=== PATIENT | male | born 2000 | race American Indian/Alaskan Native ===

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

== ENCOUNTER 2020-03-28 13:16 | Emergency (ER) | payer BC ==
[2020-03-28] MEDS ORDERED: Lidocaine 1% with EPINEPHrine 1:100,000 10 ML MDV INJECT ONE (13:42)
[2020-03-28] MEDS ORDERED: Lidocaine 1% with EPINEPHrine 1:100,000 20 ML MDV ONE (13:45)
[2020-03-28] MEDS ORDERED: Lidocaine 1% with EPINEPHrine 1:100,000 20 ML MDV INJECT ONE (13:49)
--- NOTE | 2020-03-28 15:08 | EDM.PDOC ---
ED HPI GENERAL MEDICAL PROBLEM - General Chief Complaint: Laceration Stated Complaint: MEDICAL CLEARANCE Time Seen by Provider: 03/28/20 13:28 - History of Present Illness INITIAL COMMENTS - FREE TEXT/NARRATIVE: CHIEF COMPLAINT(S): Arm laceration HISTORY OF PRESENT ILLNESS: This is a 19-year-old male without any significant past medical history who comes to the emergency department with a chief complaint of arm laceration. The patient states that he was cleaning dishes and he was cleaning a knife and it slipped causing him to cut his left arm. He states that there was a significant amount of bleeding. He decided to come to the emergency department. He denies any numbness, tingling, or weakness. Given the location of the laceration I did asked the patient about any suicidal ideation, homicidal ideation or suicide attempt. He denied any. He denies any prior history. He states that his tetanus is up-to-date. He denies any other injuries REVIEW OF SYSTEMS: Constitutional: Denies fever, chills. Eyes: Denies eye pain Ears, Nose, Mouth, & Throat: Denies earache Cardiovascular: Denies chest pain Respiratory: Denies shortness of breath Gastrointestinal: Denies Nausea, vomiting, diarrhea, hematochezia. Genitourinary: Denies hematuria MSK: Positive for left arm laceration. Denies any decreased range of motion or exposed bone. Neurological: Denies blurred vision numbness, tingling, weakness Psychiatric: Positive for anxiety. Denies depression PAST MEDICAL HISTORY: As per history of present illness and as reviewed below otherwise noncontributory. SURGICAL HISTORY: As per history of present illness and as reviewed below otherwise noncontributory. SOCIAL HISTORY: As per history of present illness and as reviewed below otherwise noncontributory. FAMILY HISTORY: As per history of present illness and as reviewed below otherwise noncontributory. EXAMINATION OF ORGAN SYSTEMS/BODY AREAS: Constitutional: Blood pressure is 147/106, heart rate 115, respiratory rate 20 with an oxygen saturation of 10 percent on room air. Temperature 37.3 General: Overall well-appearing young man who is in no acute distress Psychiatric: Appropriate mood and affect. Eyes: No scleral icterus or conjunctival erythema ENMT: Moist mucous membranes. No pharyngeal erythema Cardiovascular: Regular, rate, and rhythm. No gallops, murmurs, or rubs. Bilateral upper extremity pulses symmetric and intact. No JVD. Respiratory: Lungs clear to auscultation bilaterally. No wheezes, rales, or rhonchi. Musculoskeletal: The patient has full dexterity of all his fingers of the left hand. Good flexion and extension of the elbow. Skin: There is an 8 cm laceration without any tendon exposed with some muscle exposed. There is some mild oozing of blood. Neurological: Alert, GCS 15 distal sensation is intact. MEDICAL DECISION MAKING AND COURSE IN THE ED WITH INTERPRETATION/REVIEW OF DIAGNOSTIC STUDIES: This is a 19-year-old male without any significant past medical history who comes to the emergency department with a centimeter left arm laceration with mild blood oozing. At this time I do not believe any imaging is indicated. We will completely wash the wound out and prepare for suture repair. The patient's tetanus is up-to-date therefore no tetanus is needed. Laceration Repair Note Repair of the 8 cm left arm wound was done by myself. Wound was irrigated well with saline. Local anesthesia with lidocaine with epinephrine was performed. No foreign bodies were noted. There was a small bleed therefore I did place a [id number] stitch with chromic gut suture which did control the bleeding. The wound was repaired with 15 4-0 directed nylon sutures. Wound edges approximated well. Bacitracin ointment and a sterile dressing were applied. After suture repair I did discuss with patient that he need to return to the emergency department if you have any pus drainage or surrounding redness. I discussed the need to remove the stitches in 7 days. He was amenable to discharge at this time and had no further questions. DISPOSITION: The patient was discharged home in stable condition. The patient will follow up with emergency department or primary care physician for stitch removal CONDITION: Fair PROCEDURES: Suture repair FINAL IMPRESSION(S)/DIAGNOSES: 1. Acute left arm laceration status post suture repair Tim Caballero M.D. left forearm Pain Score (Numeric/FACES): 8 - Related Data Allergies Allergy/AdvReac Type Severity Reaction Status Date / Time No Known Allergies Allergy Verified 03/28/20 13:49 Home Meds: Home Meds . [No Known Home Meds] 09/24/19 [History] Past Medical History - Past Health History Medical/Surgical History: Denies Medical/Surgical History HEENT History: Reports: Other (See Below) Other HEENT History: wears glasses/contacts Respiratory History: Reports: Asthma Gastrointestinal History: Reports: Cholelithiasis, GERD - Infectious Disease History Infectious Disease History: Reports: None - Past Surgical History Head Surgeries/Procedures: Reports: None HEENT Surgical History: Reports: Tonsillectomy Social & Family History - Family History Family Medical History: No Pertinent Family History - Caffeine Use Caffeine Use: Reports: None - Recreational Drug Use Recreational Drug Use: No ED ROS GENERAL - Review of Systems Review Of Systems: See Below ED EXAM, SKIN/RASH Exam: See Below Course - Vital Signs Last Recorded V/S: Last Vital Signs Temp 37.3 C 03/28/20 13:38 Pulse 115 H 03/28/20 13:38 Resp 20 03/28/20 13:38 BP 147/106 H 03/28/20 13:38 Pulse Ox - Orders/Labs/Meds Meds: Medications Discontinued Medications Generic Name Dose Route Start Last Admin Trade Name Freq PRN Reason Stop Dose Admin Lidocaine/Epinephrine 10 ml 03/28/20 13:42 Xylocaine 1% With Epinephrine 1:100,000 INJECT 03/28/20 13:43 ONETIME ONE Lidocaine/Epinephrine Confirm 03/28/20 13:45 03/28/20 14:06 Xylocaine 1% With Epinephrine 1:100,000 Administered 03/28/20 13:46 Not Given Dose 20 ml .ROUTE .STK-MED ONE Lidocaine/Epinephrine 20 ml 03/28/20 13:49 03/28/20 13:55 Xylocaine 1% With Epinephrine 1:100,000 INJECT 03/28/20 13:50 20 ml ONETIME ONE Administration Departure - Departure Time of Disposition: 15:06 Disposition: Home, Self-Care 01 Condition: Fair Clinical Impression: Arm laceration Qualifiers: Encounter type: initial encounter Laterality: left Qualified Code(s): S41.112A - Laceration without foreign body of left upper arm, initial encounter - Discharge Information *PRESCRIPTION DRUG MONITORING PROGRAM REVIEWED*: No *COPY OF PRESCRIPTION DRUG MONITORING REPORT IN PATIENT MADAY: No Instructions: Laceration Care, Adult, [id number], Sutures, Radha, or Adhesive Wound Closure, [id number] Referrals: PCP,None [Primary Care Provider] - Forms: ED Department Discharge Additional Instructions: Your evaluated today on an emergent basis. We did place 15 stitches in your arm cut. You will need to return to the emergency department in 7 days for removal of the stitches. Please return to the emergency department if you develop any surrounding redness or drainage of pus. You may also follow-up with your primary care doctor if you choose. [facility] - Primary Care [address] [place] [address] [facility] [address] [place] [id number] The patient is informed of any results of their evaluation and diagnostic workup and all questions are answered. They are given discharge instructions and return precautions. The patient is stable for discharge. The patient states they understand and agree with the plan and that they will return if their symptoms get worse or if they have any new concerns. The following information is given to patients seen in the emergency department who are being discharged to home. This information is to outline your options for follow-up care. We provide all patients seen in our emergency department with a follow-up referral. The need for follow-up, as well as the timing and circumstances, are variable depending upon the specifics of your emergency department visit. If you don't have a primary care physician on staff, we will provide you with a referral. We always advise you to contact your personal physician following an emergency department visit to inform them of the circumstance of the visit and for follow-up with them and/or the need for any referrals to a consulting specialist. The emergency department will also refer you to a specialist when appropriate. This referral assures that you have the opportunity for follow-up care with a specialist. All of these measure are taken in an effort to provide you with optimal care, which includes your follow-up. Under all circumstances we always encourage you to contact your private physician who remains a resource for coordinating your care. When calling for follow-up care, please make the office aware that this follow-up is from your recent emergency room visit. If for any reason you are refused follow-up, please contact the [facility] Emergency Department at and asked to speak to the emergency department charge nurse. Sepsis Event Note (ED) - Evaluation Sepsis Screening Result: No Definite Risk - Focused Exam Vital Signs: Vital Signs Temp Pulse Resp BP 03/28/20 13:38 37.3 C 115 H 20 147/106 H
== END 2020-03-28 15:28 | disposition home or self-care (01) ==
LOC: MW.ED 13:16
DX: S51.812A Laceration without foreign body of left forearm, initial encounter (principal); J45.909 Unspecified asthma, uncomplicated; W26.0XXA Contact with knife, initial encounter
CPT/HCPCS: 12004; 12034; 99282-25; 99283

== ENCOUNTER 2020-04-06 01:40 | Emergency (ER) | payer BC | END 2020-04-06 01:50 | disposition left against medical advice (07) | LOC: MW.ED 01:40 | DX: S51.812D Laceration without foreign body of left forearm, subsequent encounter (principal); X58.XXXD Exposure to other specified factors, subsequent encounter | CPT/HCPCS: 99281 ==

== ENCOUNTER 2020-06-21 11:48 | Emergency (ER) | payer BC ==
--- NOTE | 2020-06-21 11:56 | PCM.EKG ---
#1 Interpretation EKG Date: 06/21/20 Time: 11:55 EKG Interpretation Comments: Sinus tachycardia rate of 109 normal axis and intervals otherwise normal EKG, no sign of acute ischemia or prior MA
[2020-06-21] MEDS ORDERED: Sodium Chloride 0.9% 1,000 ML IV ONE (11:59)
[2020-06-21] MEDS ORDERED: LORazepam 2 MG/ML SDV IVPUSH ONE (11:59)
--- NOTE | 2020-06-21 12:03 | EDM.PDOC ---
ED HPI GENERAL MEDICAL PROBLEM - General Chief Complaint: Chest Pain Stated Complaint: CHEST PAIN Time Seen by Provider: 06/21/20 11:49 Source of Information: Reports: Patient History Limitations: Reports: No Limitations - History of Present Illness INITIAL COMMENTS - FREE TEXT/NARRATIVE: HISTORY AND PHYSICAL: History of present illness: Patient is a 19-year-old male who presents to the emergency room with complaints of feeling anxious and having intermittent chest pain over the past few weeks. While the patient is talking he is tearful stating that he is going through a l ot of stress at home, his personal life and at work. His grandmother recently . He does feel that anxiety plays a role in this chest pain as he starts to feel anxious, the more he thinks about it he starts to have midsternal chest pain, tingling sensation to bilateral upper extremities, labored breathing and difficulty sitting still. He states this can last anywhere from a few seconds to several minutes. Patient denies any fever, chills, headache, change in vision, syncope or near syncope. Denies any shortness of breath or cough. Denies any abdominal pain, nausea, vomiting, diarrhea, constipation or dysuria. Has not noted any blood in urine or stool. Patient has been eating and drinking appropriately. He denies any alcohol or drug abuse. No recent travel or exposure to anyone who has been ill. Review of systems: As per history of present illness and below otherwise all systems reviewed and negative. Past medical history: As per history of present illness and as reviewed below otherwise noncontributory. Surgical history: As per history of present illness and as reviewed below otherwise noncontributory. Social history: See social history for further information Family history: As per history of present illness and as reviewed below otherwise noncontributory. Physical exam: General: Well developed and well nourished 19-year-old male. Alert and orientated x 3. Nontoxic in appearance, tearful and moderately anxious. Vital signs have been reviewed by me. Nursing notes were reviewed. HEENT: Atraumatic, normocephalic, pupils equal and reactive bilaterally, neg ative for conjunctival pallor or scleral icterus, mucous membranes moist, trachea midline. No drooling or trismus noted. No meningeal signs. No hot potato voice noted. Lungs: Clear to auscultation bilaterally. No wheezes, rales, or rhonchi. Chest nontender. Normal work of breathing, no accessory muscles used. Heart: S1S2, regular rate and rhythm without overt murmur, gallops, or rubs. No JVD. No peripheral edema Abdomen: Soft, nondistended, nontender. Normoactive bowel sounds. Negative for masses or costovertebral tenderness. Skin: Intact, warm, dry. No lesions or rashes noted. Hematologic: No petechiae or purpra. Mucosa appropriate color and normal nail bed color and refill. Extremities: Atraumatic, moves all extremities per self without difficulty or deficits, negative for cords or calf pain. Neurovascular unremarkable. Neuro: Awake, alert, oriented. Cranial nerves II through XII unremarkable. Cerebellum unremarkable. Motor and sensory unremarkable throughout. Exam nonfocal. Psychiatric: Mood and affect are appropriate. Normal thought process. Answering questions appropriately. Notes: *This patient was seen and evaluated during the 2019 SARS-CoV-2 novel coronavirus pandemic period. Community viral transmission is ongoing at time of this encounter and the emergency department is operating under pandemic response procedures. 09/2019 He was seen in the ED for panic attack and increased anxiety. Patient reports he has been struggling with this for "awhile now" and "I used to be so happy...I don't know what's going on with me". He denies having any thoughts of self harm or harming others. He states the anxiety is just getting worse, and now with the passing of his grandmother he feels its been more frequent over the past two weeks. He is agreeable to lab work and I will give him a dose of Ativan while here. My suspicion for heart related issues is very low, but will do a cardiac work up. Lab work, EKG, chest x-ray are unremarkable. Patient states he feels improved after the Ativan and does appear much calmer. VSS. I have talked with the patient about today's findings, in addition to providing specific details for plan of care. Reassessment at the time of disposition demonstrates that the patient is in no acute distress. The patient is stable for discharge, counseling was provided and we discussed in great detail signs and symptoms that would prompt them to return to the Emergency Department. Medication, follow up and supportive care measures were reviewed and discussed. Voices understanding and is agreeable to plan of care. Denies any further questions or concerns at this time. Diagnostics: CBC, CMP, TSH, EKG, CXR Therapeutics: IV fluids, Ativan Prescription: Ativan (#10) Impression: Chest pain Anxiety Plan: 1. You were evaluated today on an emergent basis. Your lab work is within normal limits. Please try to reduce your stressors at home. Consider seeing a counselor as we discussed. You can use the Ativan as needed as directed. 2. You can alternate Tylenol and ibuprofen as needed for pain management. 3. We encourage you to follow up with your primary care provider and/or recommended specialist in the next few days for re-evaluation and further care/management. 4. If your symptoms should worsen, new symptoms develop or any of the signs and symptoms we discussed should arise please return to the emergency room or call 911 (if needed). Definitive disposition and diagnosis as appropriate pending reevaluation and review of above. Chest Pain Score (Numeric/FACES): 7 - Related Data Allergies Allergy/AdvReac Type Severity Reaction Status Date / Time No Known Allergies Allergy Verified 06/21/20 12:53 Home Meds: Home Meds LORazepam [Ativan] 1 mg PO BID PRN #10 tab 06/21/20 [Rx] Past Medical History - Past Health History Medical/Surgical History: Denies Medical/Surgical History HEENT History: Reports: Other (See Below) Other HEENT History: wears glasses/contacts Respiratory History: Reports: Asthma Gastrointestinal History: Reports: Cholelithiasis, GERD - Infectious Disease History Infectious Disease History: Reports: None - Past Surgical History Head Surgeries/Procedures: Reports: None HEENT Surgical History: Reports: Tonsillectomy Social & Family History - Family History Family Medical History: No Pertinent Family History - Caffeine Use Caffeine Use: Reports: None ED ROS GENERAL - Review of Systems Review Of Systems: Comprehensive ROS is negative, except as noted in HPI. ED EXAM, GENERAL - Physical Exam Exam: See Below (See dictation) Course - Vital Signs Last Recorded V/S: Last Vital Signs Temp 97.1 F 06/21/20 12:54 Pulse 109 H 06/21/20 12:54 Resp 20 06/21/20 12:54 BP 161/111 H 06/21/20 12:54 Pulse Ox - Orders/Labs/Meds Orders: Active Orders 24 hr Category Date Time Status EKG Documentation Completion [RC] STAT Care 06/21/20 11:59 Active Labs: Laboratory Tests 06/21/20 06/21/20 06/21/20 Range/Units 12:05 12:05 12:05 WBC 12.30 H (4.0-11.0) K/uL RBC 5.76 (4.50-5.90) M/uL Hgb 18.2 H (13.0-17.0) g/dL Hct 50.8 H (38.0-50.0) % MCV 88.2 (80.0-98.0) fL MCH 31.6 (27.0-32.0) pg MCHC 35.8 (31.0-37.0) g/dL RDW Std Deviation 39.1 (28.0-62.0) fl RDW Coeff of Yancy 12 (11.0-15.0) % Plt Count 306 (150-400) K/uL MPV 9.90 (7.40-12.00) fL Neut % (Auto) 76.8 (48.0-80.0) % Lymph % (Auto) 14.4 L (16.0-40.0) % Aiken % (Auto) 7.8 (0.0-15.0) % Eos % (Auto) 0.8 (0.0-7.0) % Baso % (Auto) 0.2 (0.0-1.5) % Neut # (Auto) 9.5 H (1.4-5.7) K/uL Lymph # (Auto) 1.8 (0.6-2.4) K/uL Aiken # (Auto) 1.0 H (0.0-0.8) K/uL Eos # (Auto) 0.1 (0.0-0.7) K/uL Baso # (Auto) 0.0 (0.0-0.1) K/uL Nucleated RBC % 0.0 /100WBC Nucleated RBCs # 0 K/uL Sodium 142 (136-148) mmol/L Potassium 3.6 (3.5-5.1) mmol/L Chloride 107 (98-107) mmol/L Carbon Dioxide 23.4 (21.0-32.0) mmol/L BUN 13 (7.0-18.0) mg/dL Creatinine 1.1 (0.8-1.3) mg/dL Est Cr Clr Drug Dosing TNP Estimated GFR (MDRD) > 60.0 ml/min Glucose 108 H (74-106) mg/dL Calcium 9.0 (8.5-10.1) mg/dL Total Bilirubin 0.6 (0.2-1.0) mg/dL AST 26 (15-37) IU/L ALT 99 H (14-63) IU/L Alkaline Phosphatase 141 H (46-116) U/L Troponin I < 0.050 (0.000-0.056) ng/mL Total Protein 7.7 (6.4-8.2) g/dL Albumin 3.7 (3.4-5.0) g/dL Globulin 4.0 (2.6-4.0) g/dL Albumin/Globulin Ratio 0.9 (0.9-1.6) TSH 3rd Generation 3.41 (0.52-4.13) uIU/mL Meds: Medications Discontinued Medications Generic Name Dose Route Start Last Admin Trade Name Freq PRN Reason Stop Dose Admin Sodium Chloride 1,000 mls @ 999 mls/hr 06/21/20 11:59 06/21/20 12:38 Normal Saline IV 06/21/20 12:59 999 mls/hr STAT ONE Administration Lorazepam 1 mg 06/21/20 11:59 06/21/20 12:38 Lorazepam 2 Mg/Ml Sdv IVPUSH 06/21/20 12:00 1 mg ONETIME ONE Administration Departure - Departure Time of Disposition: 12:57 Disposition: Home, Self-Care 01 Clinical Impression: Nonspecific chest pain, Anxiety Prescriptions: LORazepam [Ativan] 1 mg PO BID PRN #10 tab PRN Reason: Anxiety Instructions: Managing Anxiety, Adult Forms: ED Department Discharge Additional Instructions: The following information is given to patients seen in the emergency department who are being discharged to home. This information is to outline your options for follow-up care. We provide all patients seen in our emergency department with a follow-up referral. The need for follow-up, as well as the timing and circumstances, are variable depending upon the specifics of your emergency department visit. If you don't have a primary care physician on staff, we will provide you with a referral. We always advise you to contact your personal physician following an emergency department visit to inform them of the circumstance of the visit and for follow-up with them and/or the need for any referrals to a consulting specialist. The emergency department will also refer you to a specialist when appropriate. This referral assures that you have the opportunity for follow-up care with a specialist. All of these measure are taken in an effort to provide you with optimal care, which includes your follow-up. Under all circumstances we always encourage you to contact your private physician who remains a resource for coordinating your care. When calling for follow-up care, please make the office aware that this follow-up is from your recent emergency room visit. If for any reason you are refused follow-up, please contact the [facility] Emergency Department at and asked to speak to the emergency department charge nurse. [facility] [address] [place] [address] [place] [address] Thank you for choosing the [facility] emergency department in [place] for your medical needs today. It was a pleasure caring for you. Today you were seen in the emergency department for chest pain and anxiety. 1. You were evaluated today on an emergent basis. Your lab work is within normal limits. Please try to reduce your stressors at home. Consider seeing a counselor as we discussed. You can use the Ativan as needed as directed. 2. You can alternate Tylenol and ibuprofen as needed for pain management. 3. We encourage you to follow up with your primary care provider and/or recommended specialist in the next few days for re-evaluation and further care/management. 4. If your symptoms should worsen, new symptoms develop or any of the signs and symptoms we discussed should arise please return to the emergency room or call 911 (if needed). Sepsis Event Note (ED) - Focused Exam Vital Signs: Vital Signs Temp Pulse Resp BP 06/21/20 12:54 97.1 F 109 H 20 161/111 H - My Orders Last 24 Hours: My Active Orders 06/21/20 11:59 EKG Documentation Completion [RC] STAT - Assessment/Plan Last 24 Hours: My Active Orders 06/21/20 11:59 EKG Documentation Completion [RC] STAT
[2020-06-21 12:41] LABS: BLOOD UREA NITROGEN,BUN 13 mg/dL (7.0-18.0); CARBON DIOXIDE,CO2 23.4 mmol/L (21.0-32.0); CHLORIDE,CL 107 mmol/L (98-107); GLUCOSE RANDOM 108 mg/dL (74-106); POTASSIUM,K 3.6 mmol/L (3.5-5.1); SODIUM,NA 142 mmol/L (136-148)
--- NOTE | 2020-06-21 12:44 | CR ---
INDICATION: Chest pain and anxiety. TECHNIQUE: Chest 1 view. COMPARISON: None. FINDINGS: No focal consolidation, pleural effusion, or pneumothorax. Normal heart size and pulmonary vascularity. The bones are unremarkable. IMPRESSION: No acute cardiopulmonary findings. Dictated by Brandi Lee MD @ Jun 21 2020 12:41PM Signed by Dr. Brandi Lee @ Jun 21 2020 12:42PM
== END 2020-06-21 13:23 | disposition home or self-care (01) ==
LOC: MW.ED 11:48
DX: F41.9 Anxiety disorder, unspecified (principal)
CPT/HCPCS: 71045; 80053; 84443; 84484; 85025; 93005; 96374; 99285; J2060; J7030; 93010; 99283

== ENCOUNTER 2020-07-12 20:34 | Emergency (ER) | payer BC ==
--- NOTE | 2020-07-12 21:34 | EDM.PDOC ---
ED HPI GENERAL MEDICAL PROBLEM - General Chief Complaint: General Stated Complaint: CHEST PAIN, POSSIBLE ANXIETY ATTACK Time Seen by Provider: 07/12/20 21:25 - History of Present Illness INITIAL COMMENTS - FREE TEXT/NARRATIVE: History of present illness: [] Patient had an anxiety attack tonight. He has had some random and I anxiety attacks for the last 5 months. He was seen here in June of this year for anxiety attack and is physical work-up was negative except for tachycardia. The patient says it happens randomly. It does not happen when he is busy at work. It happens randomly without any warning. After he begins to feel like he is short of breath and tingling in his forearms he begins to worry about things. It turns into vicious cycle. He was given a trial of Ativan total of 10 pills on his last visit and he did not have any problem while he was taking the medicine. The sort of helps to make the diagnosis but he did not have any mental health follow-up. Review of systems: As per history of present illness and below otherwise all systems reviewed and negative. Past medical history: As per history of present illness and as reviewed below otherwise noncontributory. Surgical history: As per history of present illness and as reviewed below otherwise noncontributory. Social history: No reported history of drug or alcohol abuse. Family history: As per history of present illness and as reviewed below otherwise noncontributory. Physical exam: Constitutional - well developed, well-nourished and in no acute distress HEENT - normocephalic, no evidence of trauma - external nose and mouth normal - no mass in neck and no JVD - mucosae moist EYES - full EOM, PERRL, no icterus - no evidence of inflammation, injection, or drainage Respiratory - no respiratory distress, equal bilateral expansion, lungs clear to auscultation and no abnormal lung sounds Cardiovascular - Regular Rhythm with S1 and S2 appreciated and no murmur, gallop or rub. GI - abdomen soft without distension or organomegaly - normal bowel sounds - no guard or rebound Musculoskeletal no gross deformity of long bones or joints - no tenderness, swelling or edema Neurologic - Alert and oriented times four - CN II-XII grossly intact - motor sensory and coordination symmetrically normal Psychiatric - appropriate mood and affect with normal thought content Hematologic - No petechiae or purpura - mucosa appropriate color and sclera not pale - normal nail bed color and refill Integument - no rash or evidence of trauma - normal turgor Diagnostics: [] Therapeutics: [] Impression: [] Plan: [] Definitive disposition and diagnosis as appropriate pending reevaluation and review of above. - Related Data Allergies Allergy/AdvReac Type Severity Reaction Status Date / Time No Known Allergies Allergy Verified 07/12/20 21:26 Home Meds: Home Meds LORazepam [Ativan] 1 mg PO Q8H PRN #10 tab 07/12/20 [Rx] Metoprolol Succinate [Toprol XL] 25 mg PO BEDTIME #30 tab.er 07/12/20 [Rx] Past Medical History - Past Health History Medical/Surgical History: Denies Medical/Surgical History HEENT History: Reports: Other (See Below) Other HEENT History: wears glasses/contacts Respiratory History: Reports: Asthma Gastrointestinal History: Reports: Cholelithiasis, GERD - Infectious Disease History Infectious Disease History: Reports: None - Past Surgical History Head Surgeries/Procedures: Reports: None HEENT Surgical History: Reports: Tonsillectomy GI Surgical History: Reports: Cholecystectomy Social & Family History - Family History Family Medical History: No Pertinent Family History - Tobacco Use Tobacco Use Status *Q: Never Tobacco User - Caffeine Use Caffeine Use: Reports: Coffee, Energy Drinks, Soda - Recreational Drug Use Recreational Drug Use: No ED ROS GENERAL - Review of Systems Review Of Systems: Comprehensive ROS is negative, except as noted in HPI. ED EXAM, GENERAL - Physical Exam Exam: See Below Free Text/Narrative:: My physical exam is in the HPI #1 Interpretation EKG Interpretation Comments: EKG done at 9:24 PM sinus tachycardia heart rate 111 ME interval 160. QT duration 421 axis 75. Borderline Q waves in the lateral leads. ST and T normal. Compared to 06/21/2020 no change. Impression no acute injury or arrhythmia other than tachycardia. Course - Vital Signs Text/Narrative:: 2243 hrs. patient felt better after Ativan. Blood pressure 161 systolic heart rate 115. Thyroid study was normal on last visit. Plan to refer to primary care to reassess his pulse and blood pressure. Also needs referral to psychology or psychiatry services so that he does not end up getting Ativan over and over because of his anxiety. Last Recorded V/S: Last Vital Signs Temp 36.8 C 07/12/20 21:22 Pulse 106 H 07/12/20 21:22 Resp 20 07/12/20 21:22 BP 133/94 H 07/12/20 21:22 Pulse Ox 96 07/12/20 21:22 - Orders/Labs/Meds Orders: Active Orders 24 hr Category Date Time Status Communication Order [RC] STAT Care 07/12/20 21:53 Active Meds: Medications Discontinued Medications Generic Name Dose Route Start Last Admin Trade Name Freq PRN Reason Stop Dose Admin Lorazepam 1 mg 07/12/20 21:52 07/12/20 22:11 Lorazepam 1 Mg Tab PO 07/12/20 21:53 1 mg ONETIME ONE Administration Departure - Departure Time of Disposition: 22:46 Disposition: Home, Self-Care 01 Condition: Good Clinical Impression: Hypertension, Anxiety - Discharge Information Prescriptions: LORazepam [Ativan] 1 mg PO Q8H PRN #10 tab PRN Reason: Anxiety Instructions: Hypertension, Adult, [id number], Managing Anxiety, Adult Referrals: PCP,None [Primary Care Provider] - Forms: ED Department Discharge Additional Instructions: Your blood pressure and pulse require follow-up with a primary care physician. I will start you on a low-dose of blood pressure medicine now. Your anxiety requires you to talk things out and try to figure out the triggers. I will refer you to a place where you can meet a counselor and talk. [facility] - Primary Care [address] [place] [address] [address] [facility] Address: [address] [place] [address] Hours: walk in 9 AM M-F The following information is given to patients seen in the emergency department who are being discharged to home. This information is to outline your options for follow-up care. We provide all patients seen in our emergency department with a follow-up referral. The need for follow-up, as well as the timing and circumstances, are variable depending upon the specifics of your emergency department visit. If you don't have a primary care physician on staff, we will provide you with a referral. We always advise you to contact your personal physician following an emergency department visit to inform them of the circumstance of the visit and for follow-up with them and/or the need for any referrals to a consulting specialist. The emergency department will also refer you to a specialist when appropriate. This referral assures that you have the opportunity for follow-up care with a specialist. All of these measure are taken in an effort to provide you with optimal care, which includes your follow-up. Under all circumstances we always encourage you to contact your private physician who remains a resource for coordinating your care. When calling for follow-up care, please make the office aware that this follow-up is from your recent emergency room visit. If for any reason you are refused follow-up, please contact the [facility] Emergency Department at and asked to speak to the emergency department charge nurse. Sepsis Event Note (ED) - Evaluation Sepsis Screening Result: No Definite Risk - Focused Exam Vital Signs: Vital Signs Temp Pulse Resp BP Pulse Ox 07/12/20 21:22 36.8 C 106 H 20 133/94 H 96 - My Orders Last 24 Hours: My Active Orders 07/12/20 21:53 Communication Order [RC] STAT - Assessment/Plan Last 24 Hours: My Active Orders 07/12/20 21:53 Communication Order [RC] STAT
[2020-07-12] MEDS ORDERED: LORazepam 1 MG Tab PO ONE (21:52)
== END 2020-07-12 22:59 | disposition home or self-care (01) ==
LOC: MW.ED 20:34
DX: F41.9 Anxiety disorder, unspecified (principal); I10 Essential (primary) hypertension
CPT/HCPCS: 99283; A9270; 93010

== ENCOUNTER 2020-09-09 16:40 | Emergency (ER) | payer BC ==
--- NOTE | 2020-09-09 18:00 | EDM.PDOC ---
ED HPI GENERAL MEDICAL PROBLEM - General Chief Complaint: General Stated Complaint: BODY ACHES Time Seen by Provider: 09/09/20 17:41 Source of Information: Reports: Patient History Limitations: Reports: No Limitations - History of Present Illness INITIAL COMMENTS - FREE TEXT/NARRATIVE: Patient is a 19-year-old male who presents today for diffuse body aches. Patient dates he was at work and became very upset and at this diffuse body aches and 5 his hands locked up at a point to as well. Patient has history of anxiety has been feeling anxious recently had a very tense moment today when it started. 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 He currently states that he does not feel tired anymore has no chest pain fever chills nausea vomiting denies any drug use. Patient denies any thoughts when harm himself or anyone else. generalized full body Pain Score (Numeric/FACES): 4 - Related Data Allergies Allergy/AdvReac Type Severity Reaction Status Date / Time No Known Allergies Allergy Verified 09/09/20 17:44 Home Meds: Home Meds . [No Known Home Meds] 09/09/20 [History] Past Medical History - Past Health History Medical/Surgical History: Denies Medical/Surgical History HEENT History: Reports: Other (See Below) Other HEENT History: wears glasses/contacts Cardiovascular History: Reports: None Respiratory History: Reports: Asthma Gastrointestinal History: Reports: Cholelithiasis, GERD Genitourinary History: Reports: None Musculoskeletal History: Reports: None Neurological History: Reports: None Psychiatric History: Reports: None Endocrine/Metabolic History: Reports: None Hematologic History: Reports: None Immunologic History: Reports: None Oncologic (Cancer) History: Reports: None Dermatologic History: Reports: None - Infectious Disease History Infectious Disease History: Reports: None - Past Surgical History Head Surgeries/Procedures: Reports: None HEENT Surgical History: Reports: Tonsillectomy GI Surgical History: Reports: Cholecystectomy Social & Family History - Family History Family Medical History: No Pertinent Family History - Tobacco Use Tobacco Use Status *Q: Never Tobacco User Second Hand Smoke Exposure: No - Caffeine Use Caffeine Use: Reports: None - Recreational Drug Use Recreational Drug Use: No ED ROS GENERAL - Review of Systems Review Of Systems: See Below Constitutional: Reports: No Symptoms HEENT: Reports: No Symptoms Respiratory: Reports: No Symptoms Cardiovascular: Reports: No Symptoms Endocrine: Reports: No Symptoms GI/Abdominal: Reports: No Symptoms : Reports: No Symptoms Musculoskeletal: Reports: No Symptoms Skin: Reports: No Symptoms Neurological: Reports: No Symptoms Psychiatric: Reports: No Symptoms Hematologic/Lymphatic: Reports: No Symptoms Immunologic: Reports: No Symptoms ED EXAM, GENERAL - Physical Exam Exam: See Below Exam Limited By: No Limitations General Appearance: Alert, WD/WN, No Apparent Distress Eye Exam: Bilateral Eye: EOMI, PERRL Respiratory/Chest: No Respiratory Distress, Lungs Clear, Normal Breath Sounds Cardiovascular: Normal Peripheral Pulses, Regular Rate, Rhythm GI/Abdominal: Normal Bowel Sounds, Soft, Non-Tender Neurological: Alert, Oriented, CN II-XII Intact, Normal Cognition, Normal Gait Course - Vital Signs Last Recorded V/S: Last Vital Signs Temp 97.6 F 09/09/20 17:40 Pulse 102 H 09/09/20 17:40 Resp 18 09/09/20 17:40 BP 135/104 H 09/09/20 17:40 Pulse Ox 97 09/09/20 17:40 - Orders/Labs/Meds Orders: Active Orders 24 hr Category Date Time Status COMPREHENSIVE METABOLIC PN,CMP [CHEM] Stat Lab 09/09/20 18:22 Received CREATINE KINASE,CK [CHEM] Stat Lab 09/09/20 18:22 Received UA W/ROBERT RFLX IF INDICATED [URIN] Stat Lab 09/09/20 17:55 Ordered Labs: Laboratory Tests 09/09/20 Range/Units 18:22 WBC 13.92 H (4.0-11.0) K/uL RBC 5.81 (4.50-5.90) M/uL Hgb 18.3 H (13.0-17.0) g/dL Hct 49.9 (38.0-50.0) % MCV 85.9 (80.0-98.0) fL MCH 31.5 (27.0-32.0) pg MCHC 36.7 (31.0-37.0) g/dL RDW Std Deviation 37.9 (28.0-62.0) fl RDW Coeff of Yancy 12 (11.0-15.0) % Plt Count 313 (150-400) K/uL MPV 10.20 (7.40-12.00) fL Neut % (Auto) 86.6 H (48.0-80.0) % Lymph % (Auto) 7.3 L (16.0-40.0) % Villalba % (Auto) 4.9 (0.0-15.0) % Eos % (Auto) 1.1 (0.0-7.0) % Baso % (Auto) 0.1 (0.0-1.5) % Neut # (Auto) 12.1 H (1.4-5.7) K/uL Lymph # (Auto) 1.0 (0.6-2.4) K/uL Villalba # (Auto) 0.7 (0.0-0.8) K/uL Eos # (Auto) 0.2 (0.0-0.7) K/uL Baso # (Auto) 0.0 (0.0-0.1) K/uL Nucleated RBC % 0.0 /100WBC Nucleated RBCs # 0 K/uL - Re-Assessments/Exams Free Text/Narrative Re-Assessment/Exam: 09/09/20 18:50 Patient labs reviewed patient will be discharged home. Departure - Departure Time of Disposition: 18:50 Disposition: Home, Self-Care 01 Condition: Good Clinical Impression: Body aches - Discharge Information *PRESCRIPTION DRUG MONITORING PROGRAM REVIEWED*: Not Applicable *COPY OF PRESCRIPTION DRUG MONITORING REPORT IN PATIENT MADAY: Not Applicable Instructions: Pain Scale Information, Adult Referrals: PCP,None [Primary Care Provider] - Forms: ED Department Discharge Additional Instructions: The following information is given to patients seen in the emergency department who are being discharged to home. This information is to outline your options for follow-up care. We provide all patients seen in our emergency department with a follow-up referral. The need for follow-up, as well as the timing and circumstances, are variable depending upon the specifics of your emergency department visit. If you don't have a primary care physician on staff, we will provide you with a referral. We always advise you to contact your personal physician following an emergency department visit to inform them of the circumstance of the visit and for follow-up with them and/or the need for any referrals to a consulting specialist. The emergency department will also refer you to a specialist when appropriate. This referral assures that you have the opportunity for follow-up care with a specialist. All of these measure are taken in an effort to provide you with optimal care, which includes your follow-up. Under all circumstances we always encourage you to contact your private physician who remains a resource for coordinating your care. When calling for follow-up care, please make the office aware that this follow-up is from your recent emergency room visit. If for any reason you are refused follow-up, please contact the [facility] Emergency Department at and asked to speak to the emergency department charge nurse. Please follow up with your primary care physician. If you do not have a primary care physician, see below: [facility] [address] [place] [id number] My [facility] [address] [place] [address] You are seen here for diffuse body aches. We did labs that were within normal limits. You believes may be related to anxiety. We told there is no test for anxiety we did try to rule out any concerning findings. Recommend you least try to stay hydrated as could be due to your anxiety but again we cannot confirm it. If you have any other concerning signs or symptoms please return to the ED. Sepsis Event Note (ED) - Evaluation Sepsis Screening Result: No Definite Risk - Focused Exam Vital Signs: Vital Signs Temp Pulse Resp BP Pulse Ox 09/09/20 17:40 97.6 F 102 H 18 135/104 H 97 - My Orders Last 24 Hours: My Active Orders 09/09/20 17:55 UA W/ROBERT RFLX IF INDICATED [URIN] Stat 09/09/20 18:22 COMPREHENSIVE METABOLIC PN,CMP [CHEM] Stat CREATINE KINASE,CK [CHEM] Stat - Assessment/Plan Last 24 Hours: My Active Orders 09/09/20 17:55 UA W/ROBERT RFLX IF INDICATED [URIN] Stat 09/09/20 18:22 COMPREHENSIVE METABOLIC PN,CMP [CHEM] Stat CREATINE KINASE,CK [CHEM] Stat Plan: Patient is a 19-year-old male who presents today for diffuse body aches that is since resolved is arriving. 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 Will obtain basic labs to check electrolytes and CK and likely discharge home.
[2020-09-09 18:53] LABS: BLOOD UREA NITROGEN,BUN 10 mg/dL (7.0-18.0); CARBON DIOXIDE,CO2 21.8 mmol/L (21.0-32.0); CHLORIDE,CL 101 mmol/L (98-107); GLUCOSE RANDOM 90 mg/dL (74-106); POTASSIUM,K 3.5 mmol/L (3.5-5.1); SODIUM,NA 138 mmol/L (136-148)
== END 2020-09-09 18:59 | disposition home or self-care (01) ==
LOC: MW.ED 16:40
DX: R52 Pain, unspecified (principal); J45.909 Unspecified asthma, uncomplicated
CPT/HCPCS: 36415; 80053; 82550; 85025; 99283

== ENCOUNTER 2021-01-27 00:15 | Emergency (ER) | payer BC ==
[2021-01-27] MEDS ORDERED: LORazepam 2 MG/ML SDV IM ONE (01:20)
--- NOTE | 2021-01-27 02:29 | EDM.PDOC ---
ED HPI GENERAL MEDICAL PROBLEM - General Chief Complaint: General Stated Complaint: CHEST PAIN Time Seen by Provider: 01/27/21 01:23 - History of Present Illness INITIAL COMMENTS - FREE TEXT/NARRATIVE: HISTORY AND PHYSICAL: History of present illness: This a 20-year-old gentleman with history significant for panic attacks in the past presents ER today complaining of recurrence of his panic attack. Patient reports that he got an argument with his girlfriend earlier today and after she left he start getting extremely anxious, felt like his heart was racing felt nauseous. Patient reports his symptoms are identical to prior panic attack symptoms however they were not as severe as some of the ones that he had in the past. Patient has any recent fevers, shakes, chills, nausea, vomiting, diarrhea, dysuria, frequency, urgency abdominal pain. Review of systems: As per history of present illness and below otherwise all systems reviewed and negative. Past medical history: As per history of present illness and as reviewed below otherwise noncontributory. Surgical history: As per history of present illness and as reviewed below otherwise noncontributory. Social history: No reported history of drug abuse. Family history: As per history of present illness and as reviewed below otherwise noncontributory. Physical exam: This patient was seen and evaluated during the 2019 SARS-CoV-2 novel coronavirus pandemic period. Community viral transmission is ongoing at time of this encounter and the emergency department is operating under pandemic response procedures. Constitutional: Patient is oriented to person, place, and time. Appears well- developed and well-nourished. No distress. HEENT: Moist mucous membranes Head: Normocephalic and atraumatic Eyes: Right eye exhibits no discharge. Left eye exhibits no discharge. No scleral icterus Neck: Normal range of motion. No tracheal deviation present. Cardiovascular: Normal rate and regular rhythm. Tachycardic Pulmonary: Effort normal, no respiratory distress. Abdominal: No distention Musculoskeletal: Normal range of motion Neurologic: Alert and oriented to person, place and time. Skin: [place], warm and dry. Psychiatric: Normal mood and affect. Behavior is normal. Judgment and thought content normal. Nursing note and vital signs have been reviewed Diagnostics: [] Therapeutics: [] Assessment and plan: 20-year-old who presents ER today with signs and symptoms consistent with his prior panic attacks before. Patient reports he is unsure exactly why it occurred but it happened after an argument with his girlfriend over a movie and after she left. Patient also reports that his stepmother has recently moved in and he feels very anxious at home even though he thinks she is a nice person. Patient denies any suicidal or homicidal ideation. Patient has any auditory visualizations. In the ED, the patient initially was extremely tachycardic. Patient was given Ativan 1 mg IM as he said he would be able to get a ride home from family. Patient was monitored in the ER for approximately 45 min and his symptoms have completely resolved and he feels much better. Patient's repeat heart rate is 94 bpm. Reassessment at the time of disposition demonstrates that the patient is in no acute distress. The patient has remained stable throughout the entire ED visit and is without objective evidence for acute process requiring urgent intervention or hospitalization. The patient is stable for discharge, counseling is provided as documented above, discussed symptomatic treatment and specific conditions for return. I have spoken with the patient/caregiver and discussed todays findings, in addition to providing specific details for the plan of care. Questions are answered and there is agreement with the plan. Definitive disposition and diagnosis as appropriate pending reevaluation and review of above. Upper Abdomen Pain Score (Numeric/FACES): 7 - Related Data Allergies Allergy/AdvReac Type Severity Reaction Status Date / Time No Known Allergies Allergy Verified 01/27/21 00:25 Home Meds: Home Meds . [No Known Home Meds] 09/09/20 [History] Past Medical History - Past Health History Medical/Surgical History: Denies Medical/Surgical History HEENT History: Reports: Other (See Below) Other HEENT History: wears glasses/contacts Cardiovascular History: Reports: None Respiratory History: Reports: Asthma Gastrointestinal History: Reports: Cholelithiasis, GERD Genitourinary History: Reports: None Musculoskeletal History: Reports: None Neurological History: Reports: None Psychiatric History: Reports: None Endocrine/Metabolic History: Reports: None Hematologic History: Reports: None Immunologic History: Reports: None Oncologic (Cancer) History: Reports: None Dermatologic History: Reports: None - Infectious Disease History Infectious Disease History: Reports: None - Past Surgical History Head Surgeries/Procedures: Reports: None HEENT Surgical History: Reports: Tonsillectomy GI Surgical History: Reports: Cholecystectomy Social & Family History - Family History Family Medical History: No Pertinent Family History - Tobacco Use Tobacco Use Status *Q: Never Tobacco User - Caffeine Use Caffeine Use: Reports: None - Recreational Drug Use Recreational Drug Use: No ED ROS GENERAL - Review of Systems Review Of Systems: See Below ED EXAM, GENERAL - Physical Exam Exam: See Below Course - Vital Signs Last Recorded V/S: Last Vital Signs Temp 97.8 F 01/27/21 00:25 Pulse 101 H 01/27/21 02:03 Resp 18 01/27/21 02:03 BP 122/89 01/27/21 02:03 Pulse Ox 95 01/27/21 02:03 - Orders/Labs/Meds Meds: Medications Discontinued Medications Generic Name Dose Route Start Last Admin Trade Name Freq PRN Reason Stop Dose Admin Lorazepam 1 mg 01/27/21 01:20 01/27/21 01:29 Lorazepam 2 Mg/Ml Sdv IM 01/27/21 01:21 1 mg ONETIME ONE Administration Departure - Departure Time of Disposition: 02:28 Disposition: Home, Self-Care 01 Condition: Good Clinical Impression: Anxiety disorder, Panic attack - Discharge Information Instructions: Panic Attack, [id number] Referrals: PCP,None [Primary Care Provider] - Additional Instructions: You were seen and evaluated in ER today secondary to signs and symptoms con sistent with a panic attack. You have been given a dose of Ativan IM and your symptoms have significantly improved. Please follow-up with your family doctor in the next couple days for reevaluation. Please return to the ER if you develop any new or concerning symptoms. The following information is given to patients seen in the emergency department who are being discharged to home. This information is to outline your options for follow-up care. We provide all patients seen in our emergency department with a follow-up referral. The need for follow-up, as well as the timing and circumstances, are variable depending upon the specifics of your emergency department visit. If you don't have a primary care physician on staff, we will provide you with a referral. We always advise you to contact your personal physician following an emergency department visit to inform them of the circumstance of the visit and for follow-up with them and/or the need for any referrals to a consulting specialist. The emergency department will also refer you to a specialist when appropriate. This referral assures that you have the opportunity for follow-up care with a specialist. All of these measure are taken in an effort to provide you with optimal care, which includes your follow-up. Under all circumstances we always encourage you to contact your private physician who remains a resource for coordinating your care. When calling for follow-up care, please make the office aware that this follow-up is from your recent emergency room visit. If for any reason you are refused follow-up, please contact the [facility] Emergency Department at and asked to speak to the emergency department charge nurse. [facility] - [facility] [address] [place] [address] [id number] [address] Sepsis Event Note (ED) - Evaluation Sepsis Screening Result: No Definite Risk - Focused Exam Vital Signs: Vital Signs Temp Pulse Resp BP Pulse Ox 01/27/21 02:03 101 H 18 122/89 95 01/27/21 01:21 107 H 18 144/105 H 96 01/27/21 00:25 97.8 F 120 H 20 154/111 H 95
== END 2021-01-27 02:53 | disposition home or self-care (01) ==
LOC: MW.ED 00:15
DX: F41.0 Panic disorder [episodic paroxysmal anxiety] (principal); J45.909 Unspecified asthma, uncomplicated
CPT/HCPCS: 96372; 99283; J2060

== ENCOUNTER 2021-02-14 11:59 | Emergency (ER) | payer OTHER, BC ==
[2021-02-14] MEDS ORDERED: Ibuprofen 600 MG Tab PO ONE (12:09)
--- NOTE | 2021-02-14 12:12 | EDM.PDOC ---
ED HPI GENERAL MEDICAL PROBLEM - General Chief Complaint: Lower Extremity Injury/Pain Stated Complaint: RT FOOT PAIN Time Seen by Provider: 02/14/21 12:04 Source of Information: Reports: Patient - History of Present Illness INITIAL COMMENTS - FREE TEXT/NARRATIVE: 1-year-old male presents complaining of right foot pain. 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 He took something along the lines of Tylenol he states at home and today it when he was at work the pain was increasing. No numbness or weakness. Pain worse with movement right foot Pain Score (Numeric/FACES): 7 - Related Data Allergies Allergy/AdvReac Type Severity Reaction Status Date / Time No Known Allergies Allergy Verified 02/14/21 12:11 Home Meds: Home Meds . [No Known Home Meds] 09/09/20 [History] Past Medical History - Past Health History Medical/Surgical History: Denies Medical/Surgical History HEENT History: Reports: Other (See Below) Other HEENT History: wears glasses/contacts Cardiovascular History: Reports: None Respiratory History: Reports: Asthma Gastrointestinal History: Reports: Cholelithiasis, GERD Genitourinary History: Reports: None Musculoskeletal History: Reports: None Neurological History: Reports: None Psychiatric History: Reports: None Endocrine/Metabolic History: Reports: None Hematologic History: Reports: None Immunologic History: Reports: None Oncologic (Cancer) History: Reports: None Dermatologic History: Reports: None - Infectious Disease History Infectious Disease History: Reports: None - Past Surgical History Head Surgeries/Procedures: Reports: None HEENT Surgical History: Reports: Tonsillectomy GI Surgical History: Reports: Cholecystectomy Social & Family History - Family History Family Medical History: No Pertinent Family History - Caffeine Use Caffeine Use: Reports: None Review of Systems - Review of Systems Review Of Systems: See Below Musculoskeletal: Reports: Foot Pain Skin: Denies: Rash Neurological: Denies: Numbness, Weakness ED EXAM, GENERAL - Physical Exam Exam: See Below Free Text/Narrative:: CONSTITUTIONAL: well appearing in no acute distress SKIN: dry, and intact without rash HENT: Normocephalic, atraumatic, NECK: normal range of motion PULMONARY: normal chest rise and fall, no respiratory distress or stridor NEUROLOGIC: normal speech, moves all extremities, grossly non-focal MUSCULOSKELETAL: no gross deformities, mild tenderness to the dorsum of the foot. Strong dorsalis pedis pulse. Cap refill less than 2 seconds. Sensorimotor function intact PSYCHIATRIC: normal mood and affect Course - Vital Signs Text/Narrative:: Sprain, fracture, dislocation, other Patient presents as outlined above. X-rays negative for fracture. Neurovascular intact. Consistent with sprain. Ibuprofen supportive treatment return precautions and PCP follow-up Last Recorded V/S: Last Vital Signs Temp 36.3 C 02/14/21 12:07 Pulse 81 02/14/21 12:07 Resp 18 02/14/21 12:07 BP 147/95 H 02/14/21 12:07 Pulse Ox 96 02/14/21 12:07 - Orders/Labs/Meds Meds: Medications Discontinued Medications Generic Name Dose Route Start Last Admin Trade Name Kenzie PRN Reason Stop Dose Admin Ibuprofen 600 mg 02/14/21 12:09 02/14/21 12:32 Ibuprofen 600 Mg Tab PO 02/14/21 12:10 600 mg ONETIME ONE Administration Departure - Departure Time of Disposition: 12:58 Disposition: Home, Self-Care 01 Condition: Good Clinical Impression: Foot sprain - Discharge Information Instructions: Foot Sprain Forms: ED Department Discharge Additional Instructions: Return for numbness, weakness, change or worsening condition. Ibuprofen for the pain. The following information is given to patients seen in the emergency department who are being discharged to home. This information is to outline your options for follow-up care. We provide all patients seen in our emergency department with a follow-up referral. The need for follow-up, as well as the timing and circumstances, are variable depending upon the specifics of your emergency department visit. If you don't have a primary care physician on staff, we will provide you with a referral. We always advise you to contact your personal physician following an emergency department visit to inform them of the circumstance of the visit and for follow-up with them and/or the need for any referrals to a consulting specialist. The emergency department will also refer you to a specialist when appropriate. This referral assures that you have the opportunity for follow-up care with a specialist. All of these measure are taken in an effort to provide you with optimal care, which includes your follow-up. Primary care clinics in the area: [facility] - [facility] Care [address] [place] [address] [facility] [address] [place] [address] Under all circumstances we always encourage you to contact your private physician who remains a resource for coordinating your care. When calling for follow-up care, please make the office aware that this follow-up is from your recent emergency room visit. If for any reason you are refused follow-up, please contact the [facility] Emergency Departm ent at and asked to speak to the emergency department charge nurse. Sepsis Event Note (ED) - Focused Exam Vital Signs: Vital Signs Temp Pulse Resp BP Pulse Ox 02/14/21 12:07 36.3 C 81 18 147/95 H 96
--- NOTE | 2021-02-14 12:46 | CR ---
HISTORY: Right foot pain, injury. TECHNIQUE: Three views of the right foot. COMPARISON: No prior. FINDINGS: No acute fracture. Mild hallux valgus. No joint space narrowing. No erosive change. No radiopaque foreign body or soft tissue gas. IMPRESSION: 1. No acute fracture. 2. Mild hallux valgus. Dictated by Cristobal Nobles MD @ 02/14/2021 12:44:37 PM (Electronically Signed)
== END 2021-02-14 13:18 | disposition home or self-care (01) ==
LOC: MW.ED 11:59
DX: S93.601A Unspecified sprain of right foot, initial encounter (principal); X50.1XXA Overexertion from prolonged static or awkward postures, initial encounter
CPT/HCPCS: 73630; 99283; A9270

== ENCOUNTER 2021-02-21 23:28 | Emergency (ER) | payer BC, OTHER ==
[2021-02-21] MEDS ORDERED: Ketorolac 30 MG/ML SDV IM ONE (23:49)
--- NOTE | 2021-02-21 23:51 | EDM.PDOC ---
ED HPI GENERAL MEDICAL PROBLEM - General Chief Complaint: General Stated Complaint: BODY ACHES, RT FOOT PAIN Time Seen by Provider: 02/21/21 23:38 - History of Present Illness INITIAL COMMENTS - FREE TEXT/NARRATIVE: History of present illness: The patient reports a history of 3 days of muscle pain. He feels like his bones hurt. Nothing makes it better or worse. He has been pushing heavy carts and working hard. He tells me he is taken ibuprofen a day or 2 ago but not today. He is not on a statin. He does not have fever and chills. He does not have a cough or other symptoms of upper respiratory symptoms. It has been quite cold last week and weekend. He does not note that he has had these pains in the past winter when it is been cold. He does not have any history of arthritis. Review of systems: As per history of present illness and below otherwise all systems reviewed and negative. Past medical history: As per history of present illness and as reviewed below otherwise noncontributory. Surgical history: As per history of present illness and as reviewed below otherwise noncontributory. Social history: No reported history of drug or alcohol abuse. Family history: As per history of present illness and as reviewed below otherwise noncontributory. Physical exam: Constitutional - well developed, well-nourished and in no acute distress HEENT - normocephalic, no evidence of trauma - external nose and mouth normal - no mass in neck and no JVD - mucosae moist EYES - full EOM, PERRL, no icterus - no evidence of inflammation, injection, or drainage Respiratory - no respiratory distress, equal bilateral expansion, lungs clear to auscultation and no abnormal lung sounds Cardiovascular - Regular Rhythm with S1 and S2 appreciated and no murmur, gallop or rub. GI - abdomen soft without distension or organomegaly - normal bowel sounds - no guard or rebound Musculoskeletal no gross deformity of long bones or joints - no tenderness, swelling or edema Neurologic - Alert and oriented times four - CN II-XII grossly intact - motor sensory and coordination symmetrically normal Psychiatric - appropriate mood and affect with normal thought content Hematologic - No petechiae or purpura - mucosa appropriate color and sclera not pale - normal nail bed color and refill Integument - no rash or evidence of trauma - normal turgor Diagnostics: [] Therapeutics: [] Impression: [] Plan: [] Definitive disposition and diagnosis as appropriate pending reevaluation and review of above. Generalized Pain Score (Numeric/FACES): 6 - Related Data Allergies Allergy/AdvReac Type Severity Reaction Status Date / Time No Known Allergies Allergy Verified 02/21/21 23:41 Home Meds: Home Meds . [No Known Home Meds] 09/09/20 [History] Past Medical History - Past Health History Medical/Surgical History: Denies Medical/Surgical History HEENT History: Reports: Other (See Below) Other HEENT History: wears glasses/contacts Cardiovascular History: Reports: None Respiratory History: Reports: Asthma Gastrointestinal History: Reports: Cholelithiasis, GERD Genitourinary History: Reports: None Musculoskeletal History: Reports: None Neurological History: Reports: None Psychiatric History: Reports: Anxiety Endocrine/Metabolic History: Reports: None Hematologic History: Reports: None Immunologic History: Reports: None Oncologic (Cancer) History: Reports: None Dermatologic History: Reports: None - Infectious Disease History Infectious Disease History: Reports: None - Past Surgical History Head Surgeries/Procedures: Reports: None HEENT Surgical History: Reports: Tonsillectomy GI Surgical History: Reports: Cholecystectomy Social & Family History - Family History Family Medical History: No Pertinent Family History - Tobacco Use Tobacco Use Status *Q: Never Tobacco User Second Hand Smoke Exposure: No - Caffeine Use Caffeine Use: Reports: None - Recreational Drug Use Recreational Drug Use: No ED ROS GENERAL - Review of Systems Review Of Systems: Comprehensive ROS is negative, except as noted in HPI. ED EXAM, GENERAL - Physical Exam Exam: See Below Free Text/Narrative:: My physical exam is in the HPI Course - Vital Signs Last Recorded V/S: Last Vital Signs Temp 36.3 C 02/21/21 23:38 Pulse 86 02/21/21 23:38 Resp 16 02/21/21 23:38 BP 139/76 02/21/21 23:38 Pulse Ox 97 02/21/21 23:38 - Orders/Labs/Meds Labs: Laboratory Tests 02/21/21 Range/Units 23:35 Influenza Type A RNA NEGATIVE (NEGATIVE) Influenza Type B RNA NEGATIVE (NEGATIVE) SARS-CoV-2 RNA ([facility]) NEGATIVE (NEGATIVE) Meds: Medications Discontinued Medications Generic Name Dose Route Start Last Admin Trade Name Freq PRN Reason Stop Dose Admin Ketorolac Tromethamine 30 mg 02/21/21 23:49 02/21/21 23:59 Ketorolac 30 Mg/Ml Sdv IM 02/21/21 23:50 30 mg ONETIME ONE Administration Departure - Departure Time of Disposition: 00:25 Disposition: Home, Self-Care 01 Condition: Good Clinical Impression: Bone pain, Numbness of foot - Discharge Information Forms: ED Department Discharge Additional Instructions: If ibuprofen has not relieved your pain it is likely that naproxen well. You should try that next. If you have had numbness in the side of your foot for 2 months it is likely permanent. You can follow-up with neurology clinic to see if they can do some testing that would show Weitzner and make sure you are not going to develop any other problems related to nerve conduction. [facility] - Neurology Professional Building [address] [place] [address], [address] [place] [address] It is good to get a primary care doctor to follow-up with. [facility] - Primary [facility] [address] [place] [address] [place] [address] The following information is given to patients seen in the emergency department who are being discharged to home. This information is to outline your options for follow-up care. We provide all patients seen in our emergency department with a follow-up referral. The need for follow-up, as well as the timing and circumstances, are variable depending upon the specifics of your emergency department visit. If you don't have a primary care physician on staff, we will provide you with a referral. We always advise you to contact your personal physician following an emergency department visit to inform them of the circumstance of the visit and for follow-up with them and/or the need for any referrals to a consulting spe cialist. The emergency department will also refer you to a specialist when appropriate. This referral assures that you have the opportunity for follow-up care with a specialist. All of these measure are taken in an effort to provide you with optimal care, which includes your follow-up. Under all circumstances we always encourage you to contact your private physician who remains a resource for coordinating your care. When calling for follow-up care, please make the office aware that this follow-up is from your recent emergency room visit. If for any reason you are refused follow-up, please contact the [facility] Emergency Department at and asked to speak to the emergency department charge nurse. Sepsis Event Note (ED) - Evaluation Sepsis Screening Result: No Definite Risk - Focused Exam Vital Signs: Vital Signs Temp Pulse Resp BP Pulse Ox 02/21/21 23:38 36.3 C 86 16 139/76 97
[2021-02-22 00:18] LABS: CORONAVIRUS COVID-19 NAA NEGATIVE (NEGATIVE); INFLUENZA A NAA NEGATIVE (NEGATIVE); INFLUENZA B NAA NEGATIVE (NEGATIVE)
== END 2021-02-22 00:39 | disposition home or self-care (01) ==
LOC: MW.ED 23:28
DX: M89.8X7 Other specified disorders of bone, ankle and foot (principal); R20.0 Anesthesia of skin; J45.909 Unspecified asthma, uncomplicated; Z20.822 Contact with and (suspected) exposure to COVID-19
CPT/HCPCS: 0240U; 96372; 99283; J1885

== ENCOUNTER 2021-04-24 19:09 | Emergency (ER) | payer BC | END 2021-04-24 20:50 | disposition home or self-care (01) | LOC: MW.ED 19:09 | DX: S63.502A Unspecified sprain of left wrist, initial encounter (principal); Z87.891 Personal history of nicotine dependence; W23.0XXA Caught, crushed, jammed, or pinched between moving objects, initial encounter; Y99.0 Civilian activity done for income or pay | CPT/HCPCS: 73110-26-LT; 73110-LT; 99283-25 ==

== ENCOUNTER 2021-08-05 09:24 | Emergency (ER) | payer BC ==
[2021-08-05] MEDS ORDERED: Ketorolac 30 MG/ML SDV IM ONE (09:43)
[2021-08-05] MEDS ORDERED: Cyclobenzaprine 10 MG Tab PO ONE (09:43)
[2021-08-05] MEDS ORDERED: Dexamethasone 10 MG/ML SDV IM STA (09:43)
== END 2021-08-05 10:25 | disposition home or self-care (01) ==
LOC: MW.ED 09:24
DX: S63.502A Unspecified sprain of left wrist, initial encounter (principal); S39.92XA Unspecified injury of lower back, initial encounter; Z79.899 Other long term (current) drug therapy; Z90.49 Acquired absence of other specified parts of digestive tract; X50.0XXA Overexertion from strenuous movement or load, initial encounter
CPT/HCPCS: 96372; 99283; A9270; J1100; J1885

== ENCOUNTER 2021-08-18 19:40 | Emergency (ER) | payer BC ==
[2021-08-18] MEDS ORDERED: Ketorolac 30 MG/ML SDV IVPUSH ONE (19:46)
[2021-08-18] MEDS ORDERED: Sodium Chloride 0.9% 1,000 ML IV ONE (19:46)
[2021-08-18] MEDS ORDERED: Ondansetron 4 MG/2 ML SDV IVPUSH ONE (19:46)
[2021-08-18 20:42] LABS: CARBON DIOXIDE,CO2 24.4 mmol/L (21.0-32.0)
[2021-08-18] MEDS ORDERED: Iopamidol 755 MG/ML 500 ML Multipack Bottle IVPUSH STA (21:14)
== END 2021-08-18 22:23 | disposition home or self-care (01) ==
LOC: MW.ED 19:40
DX: K29.00 Acute gastritis without bleeding (principal)
CPT/HCPCS: 36415; 74177; 80053; 81001; 83690; 85025; 96374; 96375; 99284; J1885; J2405; J7030; Q9967

== ENCOUNTER 2021-10-07 01:27 | Emergency (ER) | payer BC ==
[2021-10-07] MEDS ORDERED: Cyclobenzaprine 10 MG Tab PO ONE (01:52)
== END 2021-10-07 02:00 | disposition home or self-care (01) ==
LOC: MW.ED 01:27
DX: S39.92XA Unspecified injury of lower back, initial encounter (principal); Z79.899 Other long term (current) drug therapy; Z90.49 Acquired absence of other specified parts of digestive tract; W18.39XA Other fall on same level, initial encounter
CPT/HCPCS: 99283; A9270

== ENCOUNTER 2021-10-23 18:55 | Emergency (ER) | payer BC ==
[2021-10-23] MEDS ORDERED: Sodium Chloride 0.9% 1,000 ML IV ONE (19:20)
[2021-10-23 20:16] LABS: BLOOD UREA NITROGEN,BUN 16 mg/dL (7.0-18.0); CARBON DIOXIDE,CO2 24.9 mmol/L (21.0-32.0); CHLORIDE,CL 105 mmol/L (98-107); GLUCOSE RANDOM 112 mg/dL (74-106); POTASSIUM,K 3.9 mmol/L (3.5-5.1); SODIUM,NA 141 mmol/L (136-148)
[2021-10-23 20:18] LABS: ESTIMATED GFR 99 mL/min (>60)
== END 2021-10-23 21:04 | disposition home or self-care (01) ==
LOC: MW.ED 18:55
DX: R00.2 Palpitations (principal); R55 Syncope and collapse
CPT/HCPCS: 36415; 71045; 80053; 80305; 81003; 84443; 84484; 85025; 93005; 96360; 99285; J7030; 93010; 99284

== ENCOUNTER 2021-10-29 20:16 | Emergency (ER) | payer BC ==
[2021-10-30 03:20] LABS: CARBON DIOXIDE,CO2 23.6 mmol/L (21.0-32.0); POTASSIUM,K 3.9 mmol/L (3.5-5.1)
== END 2021-10-30 04:03 | disposition home or self-care (01) ==
LOC: MW.ED 20:16
DX: R07.89 Other chest pain (principal)
CPT/HCPCS: 36415; 80053; 84443; 85025; 93005; 93010; 99284; 99285

== ENCOUNTER 2021-12-05 01:52 | Emergency (ER) | payer BC ==
[2021-12-05] MEDS ORDERED: Ketorolac 30 MG/ML SDV IM STA (02:59)
== END 2021-12-05 04:22 | disposition home or self-care (01) ==
LOC: MW.ED 01:52
DX: M25.532 Pain in left wrist (principal); M79.645 Pain in left finger(s)
CPT/HCPCS: 73110; 73130; 96372; 99283; J1885; 99282

== ENCOUNTER 2022-01-14 20:39 | Emergency (ER) | payer BC ==
[2022-01-14] MEDS ORDERED: Ondansetron 4 MG/2 ML SDV IVPUSH ONE (21:02)
[2022-01-14] MEDS ORDERED: Sodium Chloride 0.9% 1,000 ML IV ONE (21:02)
[2022-01-14] MEDS ORDERED: Ketorolac 30 MG/ML SDV IVPUSH ONE (21:02)
[2022-01-14] MEDS ORDERED: Famotidine 20 MG/2 ML SDV IVPUSH ONE (21:02)
[2022-01-14 21:52] LABS: POTASSIUM,K 3.8 mmol/L (3.5-5.1)
[2022-01-14 22:37] LABS: CORONAVIRUS COVID-19 NAA NEGATIVE (NEGATIVE); INFLUENZA A NAA NEGATIVE (NEGATIVE); INFLUENZA B NAA NEGATIVE (NEGATIVE)
== END 2022-01-14 22:58 | disposition home or self-care (01) ==
LOC: MW.ED 20:39
DX: K52.9 Noninfective gastroenteritis and colitis, unspecified (principal); Z20.822 Contact with and (suspected) exposure to COVID-19
CPT/HCPCS: 0240U; 36415; 80053; 81001; 83690; 83735; 85025; 96361; 96374; 96375; 99284; J1885; J2405; J3490; J7030

== ENCOUNTER 2022-01-22 18:13 | Emergency (ER) | payer BC ==
[2022-01-22] MEDS ORDERED: Ketorolac 30 MG/ML SDV IM STA (19:18)
== END 2022-01-22 20:40 | disposition home or self-care (01) ==
LOC: MW.ED 18:13
DX: M79.671 Pain in right foot (principal)
CPT/HCPCS: 73610; 73630; 96372; 99283; J1885

== ENCOUNTER 2022-02-11 15:06 | Emergency (ER) | payer BC ==
[2022-02-11 16:11] LABS: CARBON DIOXIDE,CO2 22.7 mmol/L (21.0-32.0); POTASSIUM,K 3.5 mmol/L (3.5-5.1)
[2022-02-11 17:15] LABS: CORONAVIRUS COVID-19 NAA NEGATIVE (NEGATIVE); INFLUENZA A NAA NEGATIVE (NEGATIVE); INFLUENZA B NAA NEGATIVE (NEGATIVE); RESPIRATORY SYNCYTIAL VIR NAA NEGATIVE (NEGATIVE)
== END 2022-02-11 17:38 | disposition home or self-care (01) ==
LOC: MW.ED 15:06
DX: R07.2 Precordial pain (principal); Z20.822 Contact with and (suspected) exposure to COVID-19
CPT/HCPCS: 0241U; 36415; 71045; 80053; 84484; 85025; 93005; 99285

== ENCOUNTER 2022-02-12 13:06 | Emergency (ER) | payer BC ==
[2022-02-12] MEDS ORDERED: Alum Hydro/Mag Hydro/Simeth XS 15 ML, Metoclopramide 5 MG, Lidocaine 2% 5 ML PO ONE ×3 (14:07)
[2022-02-12 15:24] LABS: CARBON DIOXIDE,CO2 25.5 mmol/L (21.0-32.0)
== END 2022-02-12 15:42 | disposition home or self-care (01) ==
LOC: MW.ED 13:06
DX: R10.11 Right upper quadrant pain (principal)
CPT/HCPCS: 36415; 80053; 85025; 99284; A9270

== ENCOUNTER 2022-03-13 15:52 | Emergency (ER) | payer BC ==
[2022-03-13] MEDS ORDERED: Ketorolac 30 MG/ML SDV IM ONE (16:47)
== END 2022-03-13 17:14 | disposition home or self-care (01) ==
LOC: MW.ED 15:52
DX: G56.01 Carpal tunnel syndrome, right upper limb (principal); Z90.49 Acquired absence of other specified parts of digestive tract
CPT/HCPCS: 73110; 96372; 99283; J1885

== ENCOUNTER 2022-03-17 20:14 | Emergency (ER) | payer BC ==
[2022-03-17] MEDS ORDERED: Alum Hydro/Mag Hydro/Simeth XS 15 ML, Metoclopramide 5 MG, Lidocaine 2% 5 ML PO ONE ×3 (20:34)
[2022-03-17 21:13] LABS: CARBON DIOXIDE,CO2 23.9 mmol/L (21.0-32.0); POTASSIUM,K 3.9 mmol/L (3.5-5.1)
== END 2022-03-17 21:30 | disposition home or self-care (01) ==
LOC: MW.ED 20:14
DX: R10.11 Right upper quadrant pain (principal); R10.12 Left upper quadrant pain; R10.13 Epigastric pain; K21.9 Gastro-esophageal reflux disease without esophagitis
CPT/HCPCS: 36415; 80053; 83690; 85025; 99284; A9270

== ENCOUNTER 2022-03-21 22:08 | Emergency (ER) | payer BC ==
[2022-03-21] MEDS ORDERED: Acetaminophen 500 MG Tab PO ONE (22:25)
[2022-03-21] MEDS ORDERED: Ibuprofen 600 MG Tab PO ONE (22:25)
== END 2022-03-21 23:38 | disposition home or self-care (01) ==
LOC: MW.ED 22:08
DX: S93.402A Sprain of unspecified ligament of left ankle, initial encounter (principal); Z90.49 Acquired absence of other specified parts of digestive tract; X50.1XXA Overexertion from prolonged static or awkward postures, initial encounter
CPT/HCPCS: 73610; 73660; 99283; A9270

== ENCOUNTER 2022-04-15 14:26 | Emergency (ER) | payer BC | END 2022-04-15 16:28 | disposition home or self-care (01) | LOC: MW.ED 14:26 | DX: M79.644 Pain in right finger(s) (principal); X50.0XXA Overexertion from strenuous movement or load, initial encounter; Y99.0 Civilian activity done for income or pay | CPT/HCPCS: 73140-26-F8; 73140-F8; 99283 ==

== ENCOUNTER 2022-04-17 20:22 | Emergency (ER) | payer BC ==
[2022-04-17] MEDS ORDERED: Ketorolac 30 MG/ML SDV IM STA (20:32)
[2022-04-17 21:34] LABS: BLOOD UREA NITROGEN,BUN 16 mg/dL (7.0-18.0); CARBON DIOXIDE,CO2 23.6 mmol/L (21.0-32.0); CHLORIDE,CL 104 mmol/L (98-107); ESTIMATED GFR 125 mL/min (>60); GLUCOSE RANDOM 127 mg/dL (74-106); POTASSIUM,K 3.6 mmol/L (3.5-5.1); SODIUM,NA 140 mmol/L (136-148)
== END 2022-04-17 21:52 | disposition home or self-care (01) ==
LOC: MW.ED 20:22
DX: M79.644 Pain in right finger(s) (principal); J45.909 Unspecified asthma, uncomplicated
CPT/HCPCS: 36415; 80053; 85025; 85652; 86140; 96372; 99283; J1885

== ENCOUNTER 2022-04-24 15:23 | Emergency (ER) | payer BC ==
[2022-04-24] MEDS ORDERED: Metoclopramide 10 MG/2 ML SDV IVPUSH ONE (17:36)
[2022-04-24] MEDS ORDERED: diphenhydrAMINE 50 MG/ML SDV IVPUSH ONE (17:36)
[2022-04-24] MEDS ORDERED: Sodium Chloride 0.9% 1,000 ML IV ONE (17:36)
[2022-04-24] MEDS ORDERED: Ondansetron 4 MG/2 ML SDV IVPUSH ONE (17:36)
[2022-04-24] MEDS ORDERED: Ketorolac 30 MG/ML SDV IVPUSH ONE (17:36)
[2022-04-24 19:03] LABS: CARBON DIOXIDE,CO2 25.4 mmol/L (21.0-32.0); POTASSIUM,K 4.1 mmol/L (3.5-5.1)
[2022-04-24 19:05] LABS: CORONAVIRUS COVID-19 NAA NEGATIVE (NEGATIVE); INFLUENZA A NAA NEGATIVE (NEGATIVE); INFLUENZA B NAA NEGATIVE (NEGATIVE); RESPIRATORY SYNCYTIAL VIR NAA NEGATIVE (NEGATIVE)
== END 2022-04-24 19:44 | disposition home or self-care (01) ==
LOC: MW.ED 15:23
DX: G43.909 Migraine, unspecified, not intractable, without status migrainosus (principal); J45.909 Unspecified asthma, uncomplicated; Z20.822 Contact with and (suspected) exposure to COVID-19
CPT/HCPCS: 0241U; 36415; 70450; 80053; 85025; 96361; 96374; 96375; 99284; J1200; J1885; J7030; 99283

== ENCOUNTER 2022-04-28 01:31 | Emergency (ER) | payer BC ==
[2022-04-28] MEDS ORDERED: hydrOXYzine HCl 25 MG Tab PO ONE (02:10)
== END 2022-04-28 03:13 | disposition home or self-care (01) ==
LOC: MW.ED 01:31
DX: R07.89 Other chest pain (principal); R00.2 Palpitations; J45.909 Unspecified asthma, uncomplicated
CPT/HCPCS: 93005; 99284; A9270

== ENCOUNTER 2022-05-30 22:47 | Emergency (ER) | payer BC ==
[2022-05-31] MEDS ORDERED: diphenhydrAMINE 50 MG/ML SDV IM ONE (00:19)
== END 2022-05-31 00:33 | disposition home or self-care (01) ==
LOC: MW.ED 22:47
DX: R51.9 Headache, unspecified (principal); J45.909 Unspecified asthma, uncomplicated
CPT/HCPCS: 96372; 99283; J1200

== ENCOUNTER 2022-06-02 12:39 | Emergency (ER) | payer OTHER, BC ==
[2022-06-02] MEDS ORDERED: Tetracaine HCl/PF 0.5% 4 ML Bottle EYEBOTH ONE (12:40)
[2022-06-02] MEDS ORDERED: Erythromycin Base 0.5% Ophth Oint 1 GM Tube EYERT ONE (12:57)
== END 2022-06-02 13:37 | disposition home or self-care (01) ==
LOC: MW.ED 12:39
DX: H57.89 Other specified disorders of eye and adnexa (principal); J45.909 Unspecified asthma, uncomplicated
CPT/HCPCS: 99283; A9270; J3490

== ENCOUNTER 2022-06-11 20:39 | Emergency (ER) | payer BC, OTHER ==
[2022-06-11] MEDS ORDERED: Orphenadrine 60 MG/2 ML Inj IM STA (21:42)
[2022-06-11] MEDS ORDERED: Ketorolac 60 MG/2 ML SDV IM STA (21:42)
== END 2022-06-11 23:12 | disposition home or self-care (01) ==
LOC: MW.ED 20:39
DX: S39.011A Strain of muscle, fascia and tendon of abdomen, initial encounter (principal); X50.0XXA Overexertion from strenuous movement or load, initial encounter; Y99.0 Civilian activity done for income or pay
CPT/HCPCS: 74018; 96372; 99284; J1885; J2360

== ENCOUNTER 2022-06-20 01:11 | Emergency (ER) | payer BC ==
[2022-06-20] MEDS ORDERED: Hydrocortisone 1% Crm 30 GM Tube TOP ONE (01:27)
== END 2022-06-20 01:39 | disposition home or self-care (01) ==
LOC: MW.ED 01:11
DX: S60.562A Insect bite (nonvenomous) of left hand, initial encounter (principal); J45.909 Unspecified asthma, uncomplicated; W57.XXXA Bitten or stung by nonvenomous insect and other nonvenomous arthropods, initial encounter
CPT/HCPCS: 99282; A9270